=== PATIENT | female | born 1965 | race Caucasian/White ===

== ENCOUNTER 2017-10-25 12:48 | Emergency (ER) | payer SELFPAY ==
[~2017-10-25] VITALS: Ht 162.6 cm; Wt 77.6 kg
[2017-10-25 15:00] VITALS: BP 132/106
== END 2017-10-25 15:03 | disposition home or self-care (01) ==
LOC: EME 12:48
DX: S93.401A Sprain of unspecified ligament of right ankle, initial encounter (principal); S20.211A Contusion of right front wall of thorax, initial encounter; W18.09XA Striking against other object with subsequent fall, initial encounter; Y92.009 Unspecified place in unspecified non-institutional (private) residence as the place of occurrence of the external cause; I10 Essential (primary) hypertension; E11.9 Type 2 diabetes mellitus without complications; F17.200 Nicotine dependence, unspecified, uncomplicated; Z88.6 Allergy status to analgesic agent; Z88.5 Allergy status to narcotic agent
CPT/HCPCS: 73610; 99281; 99284

== ENCOUNTER 2017-11-20 16:50 | Emergency (ER) | payer SELFPAY ==
[~2017-11-20] VITALS: Ht 162.6 cm; Wt 77.8 kg
[2017-11-20 17:17] LABS: HEMATOCRIT 42.5 % (36.0-46.0); HEMOGLOBIN 14.6 G/DL (11.9-15.5); MCH 30.4 PG (29.0-34.0); MCHC 34.4 G/DL (30.0-36.0); MCV 88.5 FL (83-99); PLATELET COUNT 163 K/uL (156-360); RBC DIS.WIDTH-CV 13.7 % (11.8-14.6); RBC DIS.WIDTH-SD 44.2 % (39-53); WHITE BLOOD COUNT 11.2 K/uL (4.1-10.2)
[2017-11-20 17:26] LABS: CHLORIDE 102 mEq/L (99-109); POTASSIUM 4.4 mEq/L (3.7-5.4); SODIUM 137 mEq/L (136-147)
[2017-11-20 17:27] LABS: GLUCOSE 273 mg/dL (70-99)
[2017-11-20 17:31] LABS: CREATININE 0.8 mg/dL (0.6-1.3); GFR ESTIMATE (CALCULATED) > 59 mL/min/
[2017-11-20 17:32] LABS: UREA NITROGEN (BUN) 8 mg/dL (9-23)
[2017-11-20 17:37] LABS: TROP-I INTERPRETATION NEGATIVE; TROPONIN-I < 0.01 ng/mL (0.0-0.30)
[2017-11-20] MEDS ORDERED: ZITHROMAX500 MG PO (18:57)
[2017-11-20] MEDS ORDERED: TESSALON PERLE100 MG PO (19:07)
[2017-11-20 19:11] VITALS: BP 188/109
== END 2017-11-20 19:12 | disposition home or self-care (01) ==
LOC: EME 16:50
DX: J20.9 Acute bronchitis, unspecified (principal); J45.909 Unspecified asthma, uncomplicated; F17.200 Nicotine dependence, unspecified, uncomplicated; E11.9 Type 2 diabetes mellitus without complications; I10 Essential (primary) hypertension; Z86.718 Personal history of other venous thrombosis and embolism; Z88.6 Allergy status to analgesic agent; Z88.5 Allergy status to narcotic agent
CPT/HCPCS: 71046; 80048; 84484; 85027; 99281; 99284

== ENCOUNTER 2017-11-25 21:11 | Emergency (ER) | payer SELFPAY ==
[~2017-11-25] VITALS: Ht 162.6 cm; Wt 76.4 kg
[~2017-11-25 21:11] MED LIST: TESSALON PERLE100 MG PO; ZITHROMAX500 MG PO
[2017-11-25 22:34] LABS: HEMATOCRIT 39.9 % (36.0-46.0); HEMOGLOBIN 13.5 G/DL (11.9-15.5); MCH 29.9 PG (29.0-34.0); MCHC 33.8 G/DL (30.0-36.0); MCV 88.3 FL (83-99); PLATELET COUNT 198 K/uL (156-360); RBC DIS.WIDTH-CV 13.1 % (11.8-14.6); RBC DIS.WIDTH-SD 42.4 % (39-53); RED BLOOD COUNT 4.52 M/uL (3.80-5.20); WHITE BLOOD COUNT 10.3 K/uL (4.1-10.2)
[2017-11-25 22:45] LABS: ALBUMIN 4.2 g/dL (3.2-4.8); CHLORIDE 99 mEq/L (99-109); POTASSIUM 4.2 mEq/L (3.7-5.4); SODIUM 138 mEq/L (136-147)
[2017-11-25 22:48] LABS: GLUCOSE 153 mg/dL (70-99); TOTAL PROTEIN 7.2 g/dL (6.4-8.3)
[2017-11-25 22:49] LABS: TOTAL BILIRUBIN 0.2 mg/dL (0.0-1.0)
[2017-11-25 22:51] LABS: ALKALINE PHOSPHATASE 144 IU/L (3-129); CREATININE 0.7 mg/dL (0.6-1.3); GFR ESTIMATE (CALCULATED) > 59 mL/min/
[2017-11-25 22:52] LABS: UREA NITROGEN (BUN) 15 mg/dL (9-23)
[2017-11-25 22:53] LABS: AST (GOT) 9 IU/L (2-34)
[2017-11-25 22:54] LABS: ALT (GPT) 18 IU/L (3-49)
[2017-11-25 23:31] LABS: TROP-I INTERPRETATION NEGATIVE; TROPONIN-I < 0.01 ng/mL (0.0-0.30)
[2017-11-26 00:42] LABS: APPEARANCE CLEAR ((CLEAR)); BILIRUBIN NEGATIVE; BLOOD NEGATIVE; COLOR YELLOW ((YELLOW)); GLUCOSE (STRIP) NEGATIVE; KETONES NEGATIVE; LEUKOCYTES SMALL; NITRITE NEGATIVE; PROTEIN (STRIP) NEGATIVE; UROBILINOGEN 0.2 MG/DL (0.2-1.0)
[2017-11-26 00:48] LABS: BACTERIA RARE /HPF; EPITHELIAL CELLS RARE /HPF; MUCUS TRACE /LPF; RED BLOOD CELLS 0-5 /HPF (0-5); UCUL ADDED? NO; WHITE BLOOD CELLS 0-5 /HPF (0-5)
[2017-11-26 01:34] LABS: TROP-I INTERPRETATION NEGATIVE; TROPONIN-I < 0.01 ng/mL (0.0-0.30)
[2017-11-26] MEDS ORDERED: PERCOCET 5/31 TABLET PO (01:57)
[2017-11-26] MEDS ORDERED: BENTYL20 MG PO (01:57)
[2017-11-26] MEDS ORDERED: ZOFRAN ODT4 MG PO (01:57)
[2017-11-26 02:30] VITALS: BP 148/89
== END 2017-11-26 02:30 | disposition home or self-care (01) ==
LOC: EME 21:11
PROVIDERS: Nurse Practitioner Family
DX: J06.9 Acute upper respiratory infection, unspecified (principal); R10.13 Epigastric pain; R11.2 Nausea with vomiting, unspecified; F17.210 Nicotine dependence, cigarettes, uncomplicated; E11.9 Type 2 diabetes mellitus without complications; I10 Essential (primary) hypertension; Z86.718 Personal history of other venous thrombosis and embolism; Z88.5 Allergy status to narcotic agent; Z88.6 Allergy status to analgesic agent
CPT/HCPCS: 71046; 74177; 80053; 81003; 84484; 85027; 87502; 93005; 94640; 99281; 99285; J2270; J2405

== ENCOUNTER 2017-12-11 19:15 | Emergency (ER) | payer SELFPAY ==
[~2017-12-11] VITALS: Ht 165.1 cm; Wt 78.3 kg
[~2017-12-11 19:15] MED LIST changes: +BENTYL20 MG PO; +PERCOCET 5/31 TABLET PO; +ZOFRAN ODT4 MG PO
[2017-12-11 20:52] LABS: HEMATOCRIT 42.8 % (36.0-46.0); HEMOGLOBIN 14.4 G/DL (11.9-15.5); MCH 29.7 PG (29.0-34.0); MCHC 33.6 G/DL (30.0-36.0); MCV 88.2 FL (83-99); PLATELET COUNT 168 K/uL (156-360); RBC DIS.WIDTH-CV 13.1 % (11.8-14.6); RED BLOOD COUNT 4.85 M/uL (3.80-5.20); WHITE BLOOD COUNT 9.3 K/uL (4.1-10.2)
[2017-12-11 21:03] LABS: ALBUMIN 4.2 g/dL (3.2-4.8)
[2017-12-11 21:04] LABS: CHLORIDE 100 mEq/L (99-109); POTASSIUM 4.1 mEq/L (3.7-5.4); SODIUM 139 mEq/L (136-147)
[2017-12-11 21:06] LABS: GLUCOSE 173 mg/dL (70-99); TOTAL PROTEIN 7.5 g/dL (6.4-8.3)
[2017-12-11 21:08] LABS: TOTAL BILIRUBIN 0.2 mg/dL (0.0-1.0)
[2017-12-11 21:09] LABS: ALKALINE PHOSPHATASE 103 IU/L (3-129)
[2017-12-11 21:10] LABS: CREATININE 0.8 mg/dL (0.6-1.3); GFR ESTIMATE (CALCULATED) > 59 mL/min/
[2017-12-11 21:11] LABS: AST (GOT) 10 IU/L (2-34); UREA NITROGEN (BUN) 19 mg/dL (9-23)
[2017-12-11 21:12] LABS: ALT (GPT) 10 IU/L (3-49)
[2017-12-11 21:13] LABS: LIPASE 17 U/L (1.0-51.0)
[2017-12-11 21:19] LABS: QUANTITATIVE HCG 6.7 MIU/ML
[2017-12-11 22:09] LABS: APPEARANCE CLEAR ((CLEAR)); BILIRUBIN NEGATIVE; BLOOD NEGATIVE; COLOR COLORLESS ((YELLOW)); GLUCOSE (STRIP) NEGATIVE; KETONES NEGATIVE; LEUKOCYTES NEGATIVE; NITRITE NEGATIVE; PROTEIN (STRIP) NEGATIVE; SPECIFIC GRAVITY 1.017 (1.000-1.030); UROBILINOGEN 0.2 MG/DL (0.2-1.0)
[2017-12-11 22:44] VITALS: BP 180/77
== END 2017-12-11 22:47 | disposition home or self-care (01) ==
LOC: EME 19:15
PROVIDERS: Physician Assistant
DX: R10.31 Right lower quadrant pain (principal); M79.661 Pain in right lower leg; K43.9 Ventral hernia without obstruction or gangrene; Z86.718 Personal history of other venous thrombosis and embolism; Z79.82 Long term (current) use of aspirin; F17.200 Nicotine dependence, unspecified, uncomplicated; E11.9 Type 2 diabetes mellitus without complications; J44.9 Chronic obstructive pulmonary disease, unspecified; I10 Essential (primary) hypertension; Z88.6 Allergy status to analgesic agent; Z88.5 Allergy status to narcotic agent
CPT/HCPCS: 74177; 80053; 81003; 83690; 84702; 85027; 93971; 99281; 99285; J2270; J2405; J7030

== ENCOUNTER 2018-01-01 18:04 | Emergency (ER) | payer SELFPAY ==
[~2018-01-01] VITALS: Ht 162.6 cm; Wt 76.0 kg
[2018-01-01 20:44] LABS: APPEARANCE CLEAR ((CLEAR)); BILIRUBIN NEGATIVE; BLOOD NEGATIVE; COLOR STRAW ((YELLOW)); GLUCOSE (STRIP) NEGATIVE; KETONES NEGATIVE; LEUKOCYTES SMALL; NITRITE NEGATIVE; PROTEIN (STRIP) NEGATIVE; SPECIFIC GRAVITY 1.005 (1.000-1.030); UROBILINOGEN 0.2 MG/DL (0.2-1.0)
[2018-01-01 20:54] LABS: BACTERIA RARE /HPF; EPITHELIAL CELLS RARE /HPF; MUCUS NONE SEEN /LPF; RED BLOOD CELLS 0-5 /HPF (0-5); WHITE BLOOD CELLS 0-5 /HPF (0-5)
[2018-01-01] MEDS ORDERED: LIDODERM 5% P1 PATCH TD (21:37)
[2018-01-01] MEDS ORDERED: ULTRACET1 TABLET PO (21:37)
[2018-01-01 21:58] VITALS: BP 132/67
== END 2018-01-01 21:58 | disposition home or self-care (01) ==
LOC: EME 18:04
PROVIDERS: Physician Assistant
DX: S30.0XXA Contusion of lower back and pelvis, initial encounter (principal); M51.37 Other intervertebral disc degeneration, lumbosacral region; R11.0 Nausea; W18.30XA Fall on same level, unspecified, initial encounter; Y93.01 Activity, walking, marching and hiking; E11.9 Type 2 diabetes mellitus without complications; I10 Essential (primary) hypertension; Z86.718 Personal history of other venous thrombosis and embolism; F17.200 Nicotine dependence, unspecified, uncomplicated; Z88.6 Allergy status to analgesic agent; Z88.5 Allergy status to narcotic agent
CPT/HCPCS: 72100; 81003; 99281; 99284; J2550; J3010

== ENCOUNTER 2018-01-18 15:24 | Emergency (ER) | payer SELFPAY ==
[~2018-01-18] VITALS: Ht 162.6 cm; Wt 79.2 kg
[~2018-01-18 15:24] MED LIST changes: +LIDODERM 5% P1 PATCH TD; +ULTRACET1 TABLET PO
[2018-01-18 15:59] LABS: HEMATOCRIT 43.7 % (36.0-46.0); HEMOGLOBIN 14.9 G/DL (11.9-15.5); MCH 30.1 PG (29.0-34.0); MCHC 34.1 G/DL (30.0-36.0); MCV 88.3 FL (83-99); RBC DIS.WIDTH-CV 13.7 % (11.8-14.6); RBC DIS.WIDTH-SD 43.9 % (39-53); RED BLOOD COUNT 4.95 M/uL (3.80-5.20); WHITE BLOOD COUNT 8.8 K/uL (4.1-10.2)
[2018-01-18 16:13] LABS: ALBUMIN 4.3 g/dL (3.2-4.8); CHLORIDE 105 mEq/L (99-109); SODIUM 141 mEq/L (136-147)
[2018-01-18 16:15] LABS: GLUCOSE 125 mg/dL (70-99); TOTAL PROTEIN 7.6 g/dL (6.4-8.3)
[2018-01-18 16:17] LABS: TOTAL BILIRUBIN 0.3 mg/dL (0.0-1.0)
[2018-01-18 16:19] LABS: ALKALINE PHOSPHATASE 108 IU/L (3-129); CREATININE 0.7 mg/dL (0.6-1.3); GFR ESTIMATE (CALCULATED) > 59 mL/min/
[2018-01-18 16:20] LABS: UREA NITROGEN (BUN) 14 mg/dL (9-23)
[2018-01-18 16:21] LABS: AST (GOT) 15 IU/L (2-34)
[2018-01-18 16:22] LABS: ALT (GPT) 13 IU/L (3-49)
[2018-01-18 16:28] LABS: QUANTITATIVE HCG < 4.0 MIU/ML
[2018-01-18 16:59] LABS: PLAT.SUFFICIENCY ADEQUATE; PLATELET COUNT 132 K/uL (156-360)
[2018-01-18] MEDS ORDERED: PERCOCET 5/31 TABLET PO (21:09)
[2018-01-18 21:25] VITALS: BP 142/88
== END 2018-01-18 21:26 | disposition home or self-care (01) ==
LOC: EME 15:24
DX: S82.401A Unspecified fracture of shaft of right fibula, initial encounter for closed fracture (principal); W19.XXXA Unspecified fall, initial encounter; E11.9 Type 2 diabetes mellitus without complications; I10 Essential (primary) hypertension; Z86.718 Personal history of other venous thrombosis and embolism; F17.200 Nicotine dependence, unspecified, uncomplicated; Z79.02 Long term (current) use of antithrombotics/antiplatelets; Z88.5 Allergy status to narcotic agent; Z88.6 Allergy status to analgesic agent
CPT/HCPCS: 73610; 73630; 80053; 84702; 85027; 93971; 99281; 99284

== ENCOUNTER 2018-01-29 21:30 | Emergency (ER) | payer SELFPAY ==
[~2018-01-29] VITALS: Ht 162.6 cm; Wt 78.7 kg
[2018-01-29] MEDS ORDERED: MOBIC7.5 MG PO ×2 (22:52→23:33)
[2018-01-29 23:41] VITALS: BP 102/83
== END 2018-01-30 00:07 | disposition home or self-care (01) ==
LOC: EME 21:30
DX: S92.351A Displaced fracture of fifth metatarsal bone, right foot, initial encounter for closed fracture (principal); W19.XXXA Unspecified fall, initial encounter; Y93.E1 Activity, personal bathing and showering; R20.0 Anesthesia of skin; J44.9 Chronic obstructive pulmonary disease, unspecified; E11.9 Type 2 diabetes mellitus without complications; I10 Essential (primary) hypertension; E78.5 Hyperlipidemia, unspecified; Z86.718 Personal history of other venous thrombosis and embolism; Z79.02 Long term (current) use of antithrombotics/antiplatelets; M79.604 Pain in right leg; R11.0 Nausea
CPT/HCPCS: 73630; 99281; 99283

== ENCOUNTER 2018-02-10 20:02 | Emergency (ER) | payer SELFPAY ==
[~2018-02-10] VITALS: Ht 162.6 cm; Wt 76.6 kg
[~2018-02-10 20:02] MED LIST changes: +MOBIC7.5 MG PO
[2018-02-10] MEDS ORDERED: DICLOFENAC SODI50 MG PO (23:25)
[2018-02-11 00:08] VITALS: BP 185/98
== END 2018-02-11 00:09 | disposition home or self-care (01) ==
LOC: EME 20:02
DX: S93.401A Sprain of unspecified ligament of right ankle, initial encounter (principal); X50.0XXA Overexertion from strenuous movement or load, initial encounter; I10 Essential (primary) hypertension; E11.9 Type 2 diabetes mellitus without complications; Z86.718 Personal history of other venous thrombosis and embolism; Z88.5 Allergy status to narcotic agent; Z88.6 Allergy status to analgesic agent; F17.200 Nicotine dependence, unspecified, uncomplicated
CPT/HCPCS: 73610; 99281; 99284

== ENCOUNTER 2018-03-01 20:45 | Emergency (ER) | payer SELFPAY ==
[~2018-03-01] VITALS: Ht 162.6 cm; Wt 45.5 kg
[~2018-03-01 20:45] MED LIST changes: +DICLOFENAC SODI50 MG PO
[2018-03-01 21:54] LABS: HEMATOCRIT 43.9 % (36.0-46.0); HEMOGLOBIN 14.8 G/DL (11.9-15.5); MCH 29.3 PG (29.0-34.0); MCHC 33.7 G/DL (30.0-36.0); MCV 86.9 FL (83-99); RBC DIS.WIDTH-SD 44.2 % (39-53); RED BLOOD COUNT 5.05 M/uL (3.80-5.20); WHITE BLOOD COUNT 8.6 K/uL (4.1-10.2)
[2018-03-01 22:06] LABS: APPEARANCE CLEAR ((CLEAR)); BILIRUBIN NEGATIVE; BLOOD NEGATIVE; COLOR YELLOW ((YELLOW)); GLUCOSE (STRIP) NEGATIVE; KETONES NEGATIVE; LEUKOCYTES SMALL; NITRITE NEGATIVE; PROTEIN (STRIP) 30; UROBILINOGEN 0.2 MG/DL (0.2-1.0)
[2018-03-01 22:06] LABS: ALBUMIN 4.1 g/dL (3.2-4.8); CHLORIDE 104 mEq/L (99-109); SODIUM 139 mEq/L (136-147)
[2018-03-01 22:08] LABS: GLUCOSE 139 mg/dL (70-99); TOTAL PROTEIN 7.1 g/dL (6.4-8.3)
[2018-03-01 22:10] LABS: TOTAL BILIRUBIN 0.4 mg/dL (0.0-1.0)
[2018-03-01 22:12] LABS: ALKALINE PHOSPHATASE 94 IU/L (3-129); CREATININE 0.7 mg/dL (0.6-1.3); GFR ESTIMATE (CALCULATED) > 59 mL/min/
[2018-03-01 22:13] LABS: UREA NITROGEN (BUN) 12 mg/dL (9-23)
[2018-03-01 22:13] LABS: BACTERIA RARE /HPF; EPITHELIAL CELLS RARE /HPF; MUCUS NONE SEEN /LPF; RED BLOOD CELLS 0-5 /HPF (0-5); WHITE BLOOD CELLS 0-5 /HPF (0-5)
[2018-03-01 22:14] LABS: AST (GOT) 11 IU/L (2-34); DIRECT BILIRUBIN 0.1 mg/dL (0.0-0.3)
[2018-03-01 22:15] LABS: ALT (GPT) 9 IU/L (3-49); LIPASE 12 U/L (1.0-51.0)
[2018-03-01 22:22] LABS: PLATELET COUNT 158 K/uL (156-360)
[2018-03-01] MEDS ORDERED: VALIUM5 MG PO (23:31)
[2018-03-01] MEDS ORDERED: PROMETHAZINE HC25 M1 PO (23:31)
[2018-03-01] MEDS ORDERED: PREDNISONE20 MG PO (23:31)
[2018-03-02 00:32] VITALS: BP 190/88
== END 2018-03-02 00:33 | disposition home or self-care (01) ==
LOC: EME 20:45
PROVIDERS: Physician Assistant
DX: M54.5 Low back pain (principal); G89.29 Other chronic pain; M54.16 Radiculopathy, lumbar region; I10 Essential (primary) hypertension; R11.2 Nausea with vomiting, unspecified; E11.9 Type 2 diabetes mellitus without complications; F17.200 Nicotine dependence, unspecified, uncomplicated; Z86.718 Personal history of other venous thrombosis and embolism; Z90.49 Acquired absence of other specified parts of digestive tract; Z88.6 Allergy status to analgesic agent; Z88.5 Allergy status to narcotic agent
CPT/HCPCS: 74176; 80048; 80076; 81003; 83690; 85027; 87077; 87086; 87186; 99281; 99284; J1100; J2550; J3010

== ENCOUNTER 2018-03-09 20:13 | Emergency (ER) | payer SELFPAY ==
[~2018-03-09] VITALS: Ht 162.6 cm; Wt 74.3 kg
[~2018-03-09 20:13] MED LIST changes: +PREDNISONE20 MG PO; +PROMETHAZINE HC25 M1 PO; +VALIUM5 MG PO
[2018-03-09] MEDS ORDERED: PREDNISONE50 MG PO (21:47)
[2018-03-09] MEDS ORDERED: PERCOCET 5/31 TABLET PO (21:47)
[2018-03-09] MEDS ORDERED: FLEXERIL5 MG PO (21:47)
[2018-03-09 21:59] VITALS: BP 171/98
== END 2018-03-09 21:59 | disposition home or self-care (01) ==
LOC: EME 20:13
DX: M54.5 Low back pain (principal); I10 Essential (primary) hypertension; E11.9 Type 2 diabetes mellitus without complications; F17.200 Nicotine dependence, unspecified, uncomplicated; Z86.718 Personal history of other venous thrombosis and embolism; Z95.9 Presence of cardiac and vascular implant and graft, unspecified; Z88.6 Allergy status to analgesic agent; Z88.5 Allergy status to narcotic agent; Z88.8 Allergy status to other drugs, medicaments and biological substances
CPT/HCPCS: 82948; 99281; 99284; Q0169

== ENCOUNTER 2018-04-05 23:31 | Emergency (ER) | payer SELFPAY ==
[~2018-04-05] VITALS: Ht 162.6 cm; Wt 73.2 kg
[~2018-04-05 23:31] MED LIST changes: +FLEXERIL5 MG PO; +PREDNISONE50 MG PO
[2018-04-06] MEDS ORDERED: PROMETHAZINE HC25 M1 PO (02:23)
[2018-04-06] MEDS ORDERED: VENTOLIN HFA18 GM IH (02:23)
[2018-04-06] MEDS ORDERED: TYLENOL WITH C1 EACH PO (02:23)
[2018-04-06] MEDS ORDERED: SKELAXIN800 MG PO (02:23)
[2018-04-06 02:58] VITALS: BP 162/97
== END 2018-04-06 03:11 | disposition home or self-care (01) ==
LOC: EME 23:31
DX: S39.012A Strain of muscle, fascia and tendon of lower back, initial encounter (principal); J40 Bronchitis, not specified as acute or chronic; M54.31 Sciatica, right side; X50.1XXA Overexertion from prolonged static or awkward postures, initial encounter; Y93.E1 Activity, personal bathing and showering; G89.29 Other chronic pain; F17.200 Nicotine dependence, unspecified, uncomplicated; E11.9 Type 2 diabetes mellitus without complications; I10 Essential (primary) hypertension; Z86.718 Personal history of other venous thrombosis and embolism; Z88.6 Allergy status to analgesic agent; Z88.5 Allergy status to narcotic agent
CPT/HCPCS: 94640; 94664; 99281; 99284

== ENCOUNTER 2018-04-15 11:21 | Inpatient (IN) | payer OTHER ==
[~2018-04-15] VITALS: Ht 162.6 cm; Wt 73.4 kg
[~2018-04-15 11:21] MED LIST changes: +SKELAXIN800 MG PO; +TYLENOL WITH C1 EACH PO; +VENTOLIN HFA18 GM IH
[2018-04-15 12:10] LABS: HEMATOCRIT 42.4 % (36.0-46.0); HEMOGLOBIN 14.7 G/DL (11.9-15.5); MCHC 34.7 G/DL (30.0-36.0); MCV 86.5 FL (83-99); PLATELET COUNT 148 K/uL (156-360); RBC DIS.WIDTH-CV 13.8 % (11.8-14.6); WHITE BLOOD COUNT 11.8 K/uL (4.1-10.2)
[2018-04-15 12:21] LABS: CHLORIDE 103 mEq/L (99-109); SODIUM 139 mEq/L (136-147)
[2018-04-15 12:22] LABS: GLUCOSE 205 mg/dL (70-99)
[2018-04-15 12:26] LABS: CREATININE 0.8 mg/dL (0.6-1.3); GFR ESTIMATE (CALCULATED) > 59 mL/min/
[2018-04-15 12:27] LABS: UREA NITROGEN (BUN) 11 mg/dL (9-23)
[2018-04-15 12:33] LABS: TROP-I INTERPRETATION NEGATIVE; TROPONIN-I < 0.01 ng/mL (0.0-0.30)
[2018-04-15] MEDS ORDERED: METFORMIN HCL1000 MG PO (17:05)
[2018-04-15] MEDS ORDERED: PLAVIX75 MG PO (17:07)
[2018-04-15] MEDS ORDERED: LISINOPRIL5 MG PO (17:07)
[2018-04-15] MEDS ORDERED: PAXIL40 MG PO (17:08)
[2018-04-15] MEDS ORDERED: XANAX2 MG PO (17:08)
[2018-04-15] MEDS ORDERED: GLIPIZIDE5 MG PO (17:09)
[2018-04-15] MEDS ORDERED: LO-DOSE ASPIRIN81 M2 PO (17:10)
[2018-04-15 19:00] LABS: ALBUMIN 4.3 g/dL (3.2-4.8)
[2018-04-15 19:03] LABS: TOTAL PROTEIN 7.6 g/dL (6.4-8.3)
[2018-04-15 19:05] LABS: TOTAL BILIRUBIN 0.3 mg/dL (0.0-1.0)
[2018-04-15 19:06] LABS: ALKALINE PHOSPHATASE 97 IU/L (3-129)
[2018-04-15 19:08] LABS: AST (GOT) 8 IU/L (2-34); DIRECT BILIRUBIN 0.1 mg/dL (0.0-0.3)
[2018-04-15 19:09] LABS: ALT (GPT) 8 IU/L (3-49)
[2018-04-15 20:18] VITALS: BP 147/72
[2018-04-15 21:49] LABS: GLUCOSE 487 mg/dL (70-99)
[2018-04-15 23:14] VITALS: BP 140/72
[2018-04-16] VITALS (7 sets, daily range): BP systolic 117–191; BP diastolic 59–88
[2018-04-16 06:21] LABS: HEMATOCRIT 37.6 % (36.0-46.0); MCH 28.8 PG (29.0-34.0); MCV 87.2 FL (83-99); PLATELET COUNT 138 K/uL (156-360); RBC DIS.WIDTH-CV 13.6 % (11.8-14.6); RBC DIS.WIDTH-SD 43.6 % (39-53); RED BLOOD COUNT 4.31 M/uL (3.80-5.20); WHITE BLOOD COUNT 9.7 K/uL (4.1-10.2)
[2018-04-16 06:29] LABS: HEMOGLOBIN 12.4 G/DL (11.9-15.5)
[2018-04-16 06:35] LABS: CHLORIDE 106 MEQ/L (99-109); CREATININE 0.5 MG/DL (0.6-1.3); GFR ESTIMATE (CALCULATED) > 59 mL/min/; POTASSIUM 4.2 MEQ/L (3.7-5.4); SODIUM 140 MEQ/L (136-147); UREA NITROGEN (BUN) 10 mg/dL (9-23)
[2018-04-16 06:36] LABS: GLUCOSE 224 mg/dL (70-99)
[2018-04-16 11:38] LABS: HEMOGLOBIN A1c (GLYCOHEMOGLOB) 8.3 % (Below 5.7)
[2018-04-17 04:00] VITALS: BP 150/66
[2018-04-17 07:32] VITALS: BP 153/68
[2018-04-17 11:26] VITALS: BP 157/70
[2018-04-17 16:44] VITALS: BP 150/74
[2018-04-17 18:56] VITALS: BP 148/65
[2018-04-17 21:23] LABS: CREATININE 0.9 MG/DL (0.6-1.3); GFR ESTIMATE (CALCULATED) > 59 mL/min/
[2018-04-17 21:28] LABS: UREA NITROGEN (BUN) 21 mg/dL (9-23)
[2018-04-17 22:38] VITALS: BP 133/61
[2018-04-18 03:56] VITALS: BP 148/69
[2018-04-18 07:24] VITALS: BP 144/84
[2018-04-18 12:03] VITALS: BP 164/82
[2018-04-18] MEDS ORDERED: PLAVIX75 MG PO (14:40)
[2018-04-18] MEDS ORDERED: NICOTINE PATCH1 EAC2 TD (14:40)
[2018-04-18] MEDS ORDERED: LISINOPRIL5 MG PO (14:41)
[2018-04-18] MEDS ORDERED: LO-DOSE ASPIRIN81 M2 PO (14:41)
[2018-04-18] MEDS ORDERED: PAXIL40 MG PO (14:43)
[2018-04-18] MEDS ORDERED: PERCOCET 5/31 TABLET PO (14:46)
[2018-04-18] MEDS ORDERED: GLIPIZIDE5 MG PO (14:46)
[2018-04-18] MEDS ORDERED: MEDROL DOSEPAK4 MG PO (14:46)
[2018-04-18] MEDS ORDERED: XANAX2 MG PO (14:46)
[2018-04-18] MEDS ORDERED: DUONEB 2.5-0.5 M3 ML AEROSOL (14:49)
[2018-04-18] MEDS ORDERED: SPIRIVA RESPIMAT4 G1 IH (14:53)
[2018-04-18] MEDS ORDERED: DULERA 100 MCG/13 GM IH (14:53)
[2018-04-18] MEDS ORDERED: VENTOLIN HFA18 GM IH (14:54)
[2018-04-18] MEDS ORDERED: ACID CONTROL150 MG PO (14:55)
[2018-04-18 16:49] VITALS: BP 158/82
== END 2018-04-18 17:29 | disposition home or self-care (01) | DRG 194 ==
LOC: EME 11:21 → EDOF 17:55 → 5EAST 17:55 → ENRESERV 17:58 → 5EAST 19:55
PROVIDERS: Hospitalist; Student in an Organized Health Care Education/Training Program
DX: J18.9 Pneumonia, unspecified organism (principal); J44.0 Chronic obstructive pulmonary disease with (acute) lower respiratory infection; J44.1 Chronic obstructive pulmonary disease with (acute) exacerbation; R91.8 Other nonspecific abnormal finding of lung field; G89.29 Other chronic pain; M54.41 Lumbago with sciatica, right side; E11.51 Type 2 diabetes mellitus with diabetic peripheral angiopathy without gangrene; I10 Essential (primary) hypertension; F41.9 Anxiety disorder, unspecified; D69.6 Thrombocytopenia, unspecified; E11.65 Type 2 diabetes mellitus with hyperglycemia; T38.0X5A Adverse effect of glucocorticoids and synthetic analogues, initial encounter; F17.200 Nicotine dependence, unspecified, uncomplicated; Z79.82 Long term (current) use of aspirin; Z79.02 Long term (current) use of antithrombotics/antiplatelets; Z79.891 Long term (current) use of opiate analgesic
CPT/HCPCS: 71046; 71260; 80048; 80076; 82565; 82948; 83036; 83605; 84484; 84520; 84999; 85027; 87040; 87070; 87205; 93005; 94640; 94640 76; 94799; 99202; 99281; 99285; J0295; J0456; J0696; J1650; J1815; J2405; J2930; J3010; J7030; J7050

== ENCOUNTER 2018-04-20 17:13 | Emergency (ER) | payer OTHER ==
[~2018-04-20] VITALS: Ht 162.6 cm; Wt 75.9 kg
[~2018-04-20 17:13] MED LIST changes: +ACID CONTROL150 MG PO; +DULERA 100 MCG/13 GM IH; +DUONEB 2.5-0.5 M3 ML AEROSOL; +GLIPIZIDE5 MG PO; +LISINOPRIL5 MG PO; +LO-DOSE ASPIRIN81 M2 PO; +MEDROL DOSEPAK4 MG PO; +METFORMIN HCL1000 MG PO; +NICOTINE PATCH1 EAC2 TD; +PAXIL40 MG PO; +PLAVIX75 MG PO; +SPIRIVA RESPIMAT4 G1 IH; +XANAX2 MG PO
[2018-04-20 18:12] LABS: HEMATOCRIT 38.1 % (36.0-46.0); HEMOGLOBIN 12.9 G/DL (11.9-15.5); MCH 29.8 PG (29.0-34.0); MCHC 33.9 G/DL (30.0-36.0); PLATELET COUNT 108 K/uL (156-360); RBC DIS.WIDTH-CV 13.8 % (11.8-14.6); RBC DIS.WIDTH-SD 44.5 % (39-53); RED BLOOD COUNT 4.33 M/uL (3.80-5.20); WHITE BLOOD COUNT 6.7 K/uL (4.1-10.2)
[2018-04-20 18:22] LABS: ALBUMIN 3.4 g/dL (3.2-4.8); CHLORIDE 103 mEq/L (99-109); POTASSIUM 3.6 mEq/L (3.7-5.4); SODIUM 143 mEq/L (136-147)
[2018-04-20 18:24] LABS: GLUCOSE 145 mg/dL (70-99)
[2018-04-20 18:26] LABS: TOTAL PROTEIN 5.6 g/dL (6.4-8.3)
[2018-04-20 18:28] LABS: CREATININE 0.7 mg/dL (0.6-1.3); GFR ESTIMATE (CALCULATED) > 59 mL/min/
[2018-04-20 18:29] LABS: UREA NITROGEN (BUN) 20 mg/dL (9-23)
[2018-04-20 18:30] LABS: AST (GOT) 10 IU/L (2-34)
[2018-04-20 18:31] LABS: ALKALINE PHOSPHATASE 60 IU/L (3-129); ALT (GPT) 19 IU/L (3-49); TOTAL BILIRUBIN 0.4 mg/dL (0.0-1.0)
[2018-04-20 18:32] LABS: TROP-I INTERPRETATION NEGATIVE; TROPONIN-I < 0.01 ng/mL (0.0-0.30)
[2018-04-20 19:42] VITALS: BP 154/66
[2018-04-21] MEDS ORDERED: TESSALON200 MG PO (19:34)
== END 2018-04-20 19:44 | disposition home or self-care (01) ==
LOC: EME 17:13 → EXP 17:13
PROVIDERS: Nurse Practitioner Family
DX: J06.9 Acute upper respiratory infection, unspecified (principal); M94.0 Chondrocostal junction syndrome [Tietze]; J44.9 Chronic obstructive pulmonary disease, unspecified; E11.9 Type 2 diabetes mellitus without complications; F17.200 Nicotine dependence, unspecified, uncomplicated; Z86.718 Personal history of other venous thrombosis and embolism; F41.9 Anxiety disorder, unspecified; Z88.6 Allergy status to analgesic agent; Z88.5 Allergy status to narcotic agent
CPT/HCPCS: 71045; 80053; 83605; 84484; 85027; 93005; 94640; 99281; 99284

== ENCOUNTER 2018-04-21 17:39 | Emergency (ER) | payer OTHER ==
[~2018-04-21] VITALS: Ht 162.6 cm; Wt 75.1 kg
[2018-04-21] MEDS ORDERED: TESSALON200 MG PO (19:34)
[2018-04-21 19:39] VITALS: BP 145/86
== END 2018-04-21 19:46 | disposition left against medical advice (07) ==
LOC: EME 17:39
DX: J18.9 Pneumonia, unspecified organism (principal); J44.0 Chronic obstructive pulmonary disease with (acute) lower respiratory infection; R07.81 Pleurodynia; R11.2 Nausea with vomiting, unspecified; I10 Essential (primary) hypertension; E11.9 Type 2 diabetes mellitus without complications; Z79.84 Long term (current) use of oral hypoglycemic drugs; Z86.718 Personal history of other venous thrombosis and embolism; Z79.02 Long term (current) use of antithrombotics/antiplatelets; Z79.82 Long term (current) use of aspirin; Z87.01 Personal history of pneumonia (recurrent); Z53.20 Procedure and treatment not carried out because of patient's decision for unspecified reasons; F17.200 Nicotine dependence, unspecified, uncomplicated
CPT/HCPCS: 71046; 80048; 85027; 99281; 99283; J2765

== ENCOUNTER 2018-04-23 15:27 | Inpatient (IN) | payer OTHER ==
[~2018-04-23] VITALS: Ht 162.6 cm; Wt 74.0 kg
[~2018-04-23 15:27] MED LIST changes: +TESSALON200 MG PO
[2018-04-23 16:20] LABS: HEMATOCRIT 43.1 % (36.0-46.0); HEMOGLOBIN 14.7 G/DL (11.9-15.5); MCH 29.9 PG (29.0-34.0); MCHC 34.1 G/DL (30.0-36.0); MCV 87.6 FL (83-99); PLATELET COUNT 192 K/uL (156-360); RBC DIS.WIDTH-CV 14.5 % (11.8-14.6); RBC DIS.WIDTH-SD 45.5 % (39-53); RED BLOOD COUNT 4.92 M/uL (3.80-5.20); WHITE BLOOD COUNT 11.7 K/uL (4.1-10.2)
[2018-04-23 16:32] LABS: CHLORIDE 102 mEq/L (99-109); POTASSIUM 3.4 mEq/L (3.7-5.4); SODIUM 142 mEq/L (136-147)
[2018-04-23 16:34] LABS: GLUCOSE 201 mg/dL (70-99)
[2018-04-23 16:38] LABS: CREATININE 0.8 mg/dL (0.6-1.3); GFR ESTIMATE (CALCULATED) > 59 mL/min/
[2018-04-23 16:39] LABS: UREA NITROGEN (BUN) 11 mg/dL (9-23)
[2018-04-23 17:48] LABS: ALBUMIN 4.2 g/dL (3.2-4.8)
[2018-04-23 17:54] LABS: ALKALINE PHOSPHATASE 70 IU/L (3-129)
[2018-04-23 17:56] LABS: AST (GOT) 7 IU/L (2-34); DIRECT BILIRUBIN 0.2 mg/dL (0.0-0.3)
[2018-04-23 17:57] LABS: ALT (GPT) 9 IU/L (3-49); LIPASE 13 U/L (1.0-51.0)
[2018-04-23] MEDS ORDERED: LISINOPRIL5 MG PO (18:12)
[2018-04-23] MEDS ORDERED: GLIPIZIDE5 MG PO (18:17)
[2018-04-23] MEDS ORDERED: PROAIR HFA8.5 GM IH (18:19)
[2018-04-23] MEDS ORDERED: FLEXERIL10 MG PO (18:20)
[2018-04-23 18:21] LABS: TOTAL BILIRUBIN 0.5 mg/dL (0.0-1.0); TOTAL PROTEIN 7.3 g/dL (6.4-8.3)
[2018-04-23 20:00] VITALS: BP 138/71
[2018-04-24] VITALS: BP 130/68
[2018-04-24 04:00] VITALS: BP 127/60
[2018-04-24 06:56] LABS: ALBUMIN 3.6 G/DL (3.2-4.8); ALKALINE PHOSPHATASE 57 IU/L (3-129); ALT (GPT) 8 IU/L (3-49); AST (GOT) 8 IU/L (2-34); CHLORIDE 103 MEQ/L (99-109); CREATININE 0.6 MG/DL (0.6-1.3); GFR ESTIMATE (CALCULATED) > 59 mL/min/; SODIUM 137 MEQ/L (136-147); TOTAL BILIRUBIN 0.3 MG/DL (0.0-1.0); TOTAL PROTEIN 5.5 G/DL (6.4-8.3); UREA NITROGEN (BUN) 14 mg/dL (9-23)
[2018-04-24 07:00] LABS: GLUCOSE 374 mg/dL (70-99); POTASSIUM 4.5 MEQ/L (3.7-5.4)
[2018-04-24 07:09] LABS: HEMATOCRIT 38.2 % (36.0-46.0); MCH 29.1 PG (29.0-34.0); MCV 88.2 FL (83-99); PLATELET COUNT 141 K/uL (156-360); RBC DIS.WIDTH-CV 14.2 % (11.8-14.6); RBC DIS.WIDTH-SD 45.3 % (39-53); RED BLOOD COUNT 4.33 M/uL (3.80-5.20)
[2018-04-24 07:13] LABS: HEMOGLOBIN 12.6 G/DL (11.9-15.5)
[2018-04-24 07:19] VITALS: BP 128/58
[2018-04-24 11:19] VITALS: BP 152/67
[2018-04-24 15:09] VITALS: BP 141/64
[2018-04-24 20:16] VITALS: BP 156/72
[2018-04-25 00:01] VITALS: BP 160/75
[2018-04-25 04:05] VITALS: BP 165/75
[2018-04-25 07:45] VITALS: BP 188/76
[2018-04-25 12:00] VITALS: BP 174/71
[2018-04-25 15:59] VITALS: BP 165/74
[2018-04-25 19:47] VITALS: BP 166/71
[2018-04-26] VITALS: BP 180/88
[2018-04-26 03:51] VITALS: BP 172/72
[2018-04-26 08:25] VITALS: BP 156/82
[2018-04-26] MEDS ORDERED: ENDOCET 5-3251 EACH PO (12:10)
[2018-04-26] MEDS ORDERED: LEVEMIR100 UNIT/2 SC (12:10)
== END 2018-04-26 15:05 | disposition home or self-care (01) | DRG 190 ==
LOC: EME 15:27 → EDOF 17:09 → 5SOUTH 17:09 → ENRESERV 17:10 → 5SOUTH 19:00
PROVIDERS: Internal Medicine; Nurse Practitioner Family
DX: J44.1 Chronic obstructive pulmonary disease with (acute) exacerbation (principal); J18.9 Pneumonia, unspecified organism; J44.0 Chronic obstructive pulmonary disease with (acute) lower respiratory infection; E87.6 Hypokalemia; F17.210 Nicotine dependence, cigarettes, uncomplicated; J98.11 Atelectasis; E11.51 Type 2 diabetes mellitus with diabetic peripheral angiopathy without gangrene; G89.4 Chronic pain syndrome; E66.9 Obesity, unspecified; Z68.28 Body mass index [BMI] 28.0-28.9, adult; F11.10 Opioid abuse, uncomplicated; I10 Essential (primary) hypertension; M54.16 Radiculopathy, lumbar region; M54.30 Sciatica, unspecified side; Z79.82 Long term (current) use of aspirin; Z79.84 Long term (current) use of oral hypoglycemic drugs; Z90.710 Acquired absence of both cervix and uterus; Z91.81 History of falling
CPT/HCPCS: 71045; 71046; 74177; 80048; 80053; 80076; 80202; 82948; 83605; 83690; 84484; 85027; 87040; 87070; 87205; 87449; 93005; 94640; 94640 76; 99202; 99281; 99283; 99284; 99285; J0456; J1644; J1815; J2405; J2543; J2765; J2920; J2930; J3010; J3370; J7030; J7050; J7512

== ENCOUNTER 2018-05-18 00:09 | Observation (INO) | payer OTHER ==
[~2018-05-18] VITALS: Ht 162.6 cm; Wt 74.7 kg
[~2018-05-18 00:09] MED LIST changes: +ENDOCET 5-3251 EACH PO; +FLEXERIL10 MG PO; +LEVEMIR100 UNIT/2 SC; +PROAIR HFA8.5 GM IH
[2018-05-18 01:09] LABS: CARBON DIOXIDE (BICARBONATE) 31.9 MEQ/L (20-31)
[2018-05-18 01:26] LABS: ALBUMIN 4.4 g/dL (3.2-4.8)
[2018-05-18 01:27] LABS: CHLORIDE 98 mEq/L (99-109); POTASSIUM 3.7 mEq/L (3.7-5.4); SODIUM 138 mEq/L (136-147)
[2018-05-18 01:29] LABS: GLUCOSE 277 mg/dL (70-99); TOTAL PROTEIN 7.1 g/dL (6.4-8.3)
[2018-05-18 01:31] LABS: TOTAL BILIRUBIN 0.3 mg/dL (0.0-1.0)
[2018-05-18 01:32] LABS: ALKALINE PHOSPHATASE 124 IU/L (3-129)
[2018-05-18 01:33] LABS: CREATININE 0.9 mg/dL (0.6-1.3); GFR ESTIMATE (CALCULATED) > 59 mL/min/
[2018-05-18 02:06] LABS: HEMATOCRIT 44.7 % (36.0-46.0); MCHC 33.8 G/DL (30.0-36.0); MCV 88.7 FL (83-99); RBC DIS.WIDTH-CV 14.9 % (11.8-14.6); RED BLOOD COUNT 5.04 M/uL (3.80-5.20); WHITE BLOOD COUNT 9.4 K/uL (4.1-10.2)
[2018-05-18 02:08] LABS: UREA NITROGEN (BUN) 13 mg/dL (9-23)
[2018-05-18 02:09] LABS: ALT (GPT) 11 IU/L (3-49); AST (GOT) 11 IU/L (2-34)
[2018-05-18 02:10] LABS: LIPASE 8 U/L (1.0-51.0)
[2018-05-18 02:13] LABS: HEMOGLOBIN 15.1 G/DL (11.9-15.5)
[2018-05-18 02:17] LABS: TROP-I INTERPRETATION NEGATIVE; TROPONIN-I < 0.01 ng/mL (0.0-0.30)
[2018-05-18 02:59] LABS: PLAT.SUFFICIENCY ADEQUATE; PLATELET COUNT 186 K/uL (156-360)
[2018-05-18 03:59] LABS: TROP-I INTERPRETATION NEGATIVE; TROPONIN-I < 0.01 ng/mL (0.0-0.30)
[2018-05-18 05:30] VITALS: BP 155/82
[2018-05-18 08:08] VITALS: BP 158/72
[2018-05-18 10:13] LABS: TROP-I INTERPRETATION NEGATIVE; TROPONIN-I < 0.01 ng/mL (0.0-0.30)
[2018-05-18 11:46] VITALS: BP 107/52
[2018-05-18] MEDS ORDERED: PREDNISONE10 MG PO (14:06)
[2018-05-18] MEDS ORDERED: AMOX TR-K CLV1 EAC4 PO (14:06)
== END 2018-05-18 16:27 | disposition home or self-care (01) ==
LOC: EME 00:09 → 4SOUTH 04:10 → EDOF 04:10 → ENRESERV 04:15 → 4SOUTH 05:26 → ENPENDDIS 15:17 → 4SOUTH 16:27
PROVIDERS: Emergency Medicine; Hospitalist
DX: M94.0 Chondrocostal junction syndrome [Tietze] (principal); J44.1 Chronic obstructive pulmonary disease with (acute) exacerbation; R09.02 Hypoxemia; G89.29 Other chronic pain; F11.20 Opioid dependence, uncomplicated; E11.51 Type 2 diabetes mellitus with diabetic peripheral angiopathy without gangrene; Z95.820 Peripheral vascular angioplasty status with implants and grafts; E11.65 Type 2 diabetes mellitus with hyperglycemia; T38.0X5A Adverse effect of glucocorticoids and synthetic analogues, initial encounter; I10 Essential (primary) hypertension; F41.9 Anxiety disorder, unspecified; Z90.710 Acquired absence of both cervix and uterus; Z90.49 Acquired absence of other specified parts of digestive tract; F17.200 Nicotine dependence, unspecified, uncomplicated; Z82.49 Family history of ischemic heart disease and other diseases of the circulatory system; Z80.3 Family history of malignant neoplasm of breast; Z88.6 Allergy status to analgesic agent; Z86.718 Personal history of other venous thrombosis and embolism
CPT/HCPCS: 71046; 80053; 82803; 82948; 83690; 84484; 85027; 85379; 93005; 94640; 94799; 99281; 99285; G0378; J1650; J1815; J2405; J2930; J3010; J7030

== ENCOUNTER 2018-05-19 20:47 | Inpatient (IN) | payer OTHER ==
[~2018-05-19] VITALS: Ht 162.6 cm; Wt 78.0 kg
[~2018-05-19 20:47] MED LIST changes: +AMOX TR-K CLV1 EAC4 PO; +PREDNISONE10 MG PO
[2018-05-19 22:00] LABS: BASOPHIL (%) 0.3 % (0-1); EOSINOPHIL (%) 1.4 % (0-5); EOSINOPHIL COUNT 0.1 K/uL (0-0.3); HEMATOCRIT 38.9 % (36.0-46.0); IMMATURE GRANULOCYTE (%) 0.3 % (0.0-0.7); LYMPHOCYTE (%) 34.4 % (15-42); LYMPHOCYTE COUNT 3.5 K/uL (1.0-2.8); MCH 30.1 PG (29.0-34.0); MCHC 33.2 G/DL (30.0-36.0); MCV 90.7 FL (83-99); MONOCYTE (%) 5.4 % (3-12); MONOCYTE COUNT 0.6 K/uL (0-0.8); NEUTROPHIL (%) 58.2 % (45-76); NEUTROPHIL COUNT 5.9 K/uL (1.8-6.4); PLATELET COUNT 141 K/uL (156-360); RBC DIS.WIDTH-CV 15.2 % (11.8-14.6); RBC DIS.WIDTH-SD 50.2 % (39-53); RED BLOOD COUNT 4.29 M/uL (3.80-5.20); WHITE BLOOD COUNT 10.2 K/uL (4.1-10.2)
[2018-05-19 22:01] LABS: CARBON DIOXIDE (BICARBONATE) 30.7 MEQ/L (20-31); HEMOGLOBIN 12.9 G/DL (11.9-15.5)
[2018-05-19 22:10] LABS: ALBUMIN 3.6 g/dL (3.2-4.8); CHLORIDE 106 mEq/L (99-109); POTASSIUM 3.8 mEq/L (3.7-5.4); SODIUM 140 mEq/L (136-147)
[2018-05-19 22:12] LABS: GLUCOSE 201 mg/dL (70-99)
[2018-05-19 22:16] LABS: CREATININE 0.8 mg/dL (0.6-1.3); GFR ESTIMATE (CALCULATED) > 59 mL/min/
[2018-05-19 22:17] LABS: UREA NITROGEN (BUN) 18 mg/dL (9-23)
[2018-05-19 22:18] LABS: ALKALINE PHOSPHATASE 87 IU/L (3-129); AST (GOT) 7 IU/L (2-34); TOTAL BILIRUBIN 0.2 mg/dL (0.0-1.0)
[2018-05-19 22:19] LABS: ALT (GPT) 7 IU/L (3-49)
[2018-05-19 22:22] LABS: TROP-I INTERPRETATION NEGATIVE; TROPONIN-I < 0.01 ng/mL (0.0-0.30)
[2018-05-20] MEDS ORDERED: LEVEMIR FL100 UNIT/1 SC ×2 (01:18→01:46)
[2018-05-20] MEDS ORDERED: SPIRIVA1 INHALATI IH (01:26)
[2018-05-20] MEDS ORDERED: NEURONTIN300 MG PO (01:42)
[2018-05-20] MEDS ORDERED: LO-DOSE ASPIRIN81 M2 PO (01:42)
[2018-05-20] MEDS ORDERED: METFORMIN HCL1000 MG PO (01:43)
[2018-05-20 01:58] VITALS: BP 150/75
[2018-05-20 07:43] VITALS: BP 100/57
[2018-05-20 11:25] VITALS: BP 153/70
[2018-05-20 15:21] VITALS: BP 150/77
[2018-05-20] MEDS ORDERED: OXYCODONE-APAP1 EACH PO (16:21)
[2018-05-20] MEDS ORDERED: PROAIR HFA8.5 GM IH (16:21)
[2018-05-20] MEDS ORDERED: PREDNISONE10 MG PO (16:21)
== END 2018-05-20 15:38 | disposition home or self-care (01) | DRG 192 ==
LOC: EME 20:47 → 2EAST 23:57 → EDOF 23:57 → ENRESERV 05-20 → 2EAST 05-20 01:29 → ENPENDDIS 05-20 16:33
PROVIDERS: Emergency Medicine
DX: J44.1 Chronic obstructive pulmonary disease with (acute) exacerbation (principal); I10 Essential (primary) hypertension; R09.02 Hypoxemia; J44.9 Chronic obstructive pulmonary disease, unspecified; K21.9 Gastro-esophageal reflux disease without esophagitis; E11.9 Type 2 diabetes mellitus without complications; F32.9 Major depressive disorder, single episode, unspecified; I25.10 Atherosclerotic heart disease of native coronary artery without angina pectoris; R52 Pain, unspecified; F17.200 Nicotine dependence, unspecified, uncomplicated; F41.9 Anxiety disorder, unspecified; R56.9 Unspecified convulsions; Z79.82 Long term (current) use of aspirin; Z79.899 Other long term (current) drug therapy; Z86.718 Personal history of other venous thrombosis and embolism; Z79.4 Long term (current) use of insulin; Z90.49 Acquired absence of other specified parts of digestive tract; Z87.01 Personal history of pneumonia (recurrent); Z95.0 Presence of cardiac pacemaker
CPT/HCPCS: 71046; 80053; 81003; 82803; 82948; 83690; 84484; 85025; 85027; 85379; 93005; 93926; 93971; 94640; 94799; 99281; 99285; G0378; J1650; J1815; J2405; J2930; J3010; J7030; J7512

== ENCOUNTER 2018-06-21 18:17 | Emergency (ER) | payer OTHER ==
[~2018-06-21] VITALS: Ht 162.6 cm; Wt 75.8 kg
[~2018-06-21 18:17] MED LIST changes: +LEVEMIR FL100 UNIT/1 SC; +NEURONTIN300 MG PO; +OXYCODONE-APAP1 EACH PO; +SPIRIVA1 INHALATI IH
[2018-06-21 19:07] VITALS: BP 112/78
[2018-06-21 19:29] LABS: BASOPHIL (%) 0.6 % (0-1); BASOPHIL COUNT 0.1 K/uL (0-0.1); EOSINOPHIL (%) 1.8 % (0-5); EOSINOPHIL COUNT 0.2 K/uL (0-0.3); HEMATOCRIT 40.9 % (36.0-46.0); HEMOGLOBIN 13.6 G/DL (11.9-15.5); IMMATURE GRANULOCYTE (%) 0.4 % (0.0-0.7); LYMPHOCYTE COUNT 2.6 K/uL (1.0-2.8); MCH 30.1 PG (29.0-34.0); MCHC 33.3 G/DL (30.0-36.0); MCV 90.5 FL (83-99); MONOCYTE (%) 5.3 % (3-12); MONOCYTE COUNT 0.5 K/uL (0-0.8); NEUTROPHIL (%) 60.9 % (45-76); NEUTROPHIL COUNT 5.2 K/uL (1.8-6.4); PLATELET COUNT 136 K/uL (156-360); RBC DIS.WIDTH-CV 14.4 % (11.8-14.6); RBC DIS.WIDTH-SD 47.9 % (39-53); RED BLOOD COUNT 4.52 M/uL (3.80-5.20); WHITE BLOOD COUNT 8.5 K/uL (4.1-10.2)
[2018-06-21 19:38] LABS: PTT 23.8 SEC (25-37)
[2018-06-21 19:43] LABS: CHLORIDE 100 mEq/L (99-109); POTASSIUM 4.8 mEq/L (3.7-5.4); SODIUM 138 mEq/L (136-147)
[2018-06-21 19:46] LABS: GLUCOSE 206 mg/dL (70-99)
[2018-06-21 19:48] LABS: TOTAL BILIRUBIN 0.4 mg/dL (0.0-1.0)
[2018-06-21 19:49] LABS: ALKALINE PHOSPHATASE 85 IU/L (3-129); CREATININE 0.8 mg/dL (0.6-1.3); GFR ESTIMATE (CALCULATED) > 59 mL/min/
[2018-06-21 19:50] LABS: UREA NITROGEN (BUN) 7 mg/dL (9-23)
[2018-06-21 19:51] LABS: AST (GOT) 13 IU/L (2-34)
[2018-06-21 19:52] LABS: ALT (GPT) 8 IU/L (3-49)
[2018-06-21 19:53] LABS: LIPASE 21 U/L (1.0-51.0)
== END 2018-06-21 22:23 | disposition left against medical advice (07) ==
LOC: EXP 18:17 → EME 18:17 → EXP 22:23
PROVIDERS: Physician Assistant
DX: R10.9 Unspecified abdominal pain (principal); M79.604 Pain in right leg; R06.02 Shortness of breath; Z86.718 Personal history of other venous thrombosis and embolism; Z79.02 Long term (current) use of antithrombotics/antiplatelets; Z79.82 Long term (current) use of aspirin; J44.9 Chronic obstructive pulmonary disease, unspecified; I10 Essential (primary) hypertension; E11.9 Type 2 diabetes mellitus without complications; Z79.4 Long term (current) use of insulin; F17.200 Nicotine dependence, unspecified, uncomplicated; Z53.29 Procedure and treatment not carried out because of patient's decision for other reasons
CPT/HCPCS: 80053; 83690; 85025; 85610; 85730; 93971; 94640; 99281; 99284; J2270; J2765; J2930; J7030